=== PATIENT | female | born 1985 | race Two or more races ===

== ENCOUNTER 2024-02-12 03:58 | Emergency (ER) | payer OTHER ==
[~2024-02-12] VITALS: Ht 170.2 cm; Wt 120.4 kg
--- NOTE | 2024-02-12 04:21 | ED.PDOC ---
History of Present Illness HPI Comments 38 year old female brought in by EMS presents to the ED with a chief complaint of LT leg wound onset today around 03:00. Patient had a varicose vein on LT leg that has been bleeding for the past 2 weeks, patient has seen wound care nurse. She woke up today around 03:00, was walking to the restroom when she felt a "wet sensation" and noticed LT leg was bleeding. EMS states patient lost about 500 mL of blood and was experiencing dizziness, nausea, weakness upon EMS arrival. No other symptoms or modifying factors present at this time. Chief Complaint: Lower Extremity Time Seen by MD: 04:13 Primary Care Provider: Alexandre Pérez Notes: Medications, Allergies Allergies: Coded Allergies: NO KNOWN ALLERGIES (Unverified , 05/11/12) Information Source: Patient, Emergency Med Personnel Mode of Arrival: EMS Severity: Moderate Timing: Hours Duration: Since onset Prehospital treatment: None Past Medical History PAST MEDICAL HISTORY: Denies Surgical History: Denies all surgeries [employer] History: No Pertinent [employer] History Family History Family History: Unknown Social History Smoker: Non-Smoker Alcohol: Denies ETOH Use Drugs: Denies Drug Use Lives In: Home Constitutional: reports: weakness; denies: chills, diaphoresis, fatigue, fever, malaise, sweats, others EENTM: denies: blurred vision, double vision, ear bleeding, ear discharge, ear drainage, ear pain, ear ringing, eye pain, eye redness, hearing loss, mouth pain, mouth swelling, nasal discharge, nose bleeding, nose congestion, nose pain, photophobia, tearing, throat pain, throat swelling, voice changes, others Respiratory: denies: cough, hemoptysis, orthopnea, SOB at rest, shortness of breath, SOB with excertion, stridor, wheezing, others Cardiovascular: denies: chest pain, dizzy spells, diaphoresis, Dyspnea on exertion, edema, irregular heart beat, left arm pain, lightheadedness, palpitations, PND, syncope, others Gastrointestinal: reports: nausea; denies: abdomen distended, abdominal pain, blood streaked bowels, constipated, diarrhea, dysphagia, difficulty swallowing, hematemesis, melena, poor appetite, poor fluid intake, rectal bleeding, rectal pain, vomiting, others Genitourinary: denies: abnormal vagina bleeding, burning, dyspareunia, dysuria, flank pain, frequency, hematuria, incontinence, pain, , vagina discharge, urgency, others Neurological: reports: dizziness; denies: fainting, headache, left sided numbness, left sided weakness, numbness, paresthesia, pre-existing deficit, right sided numbness, right sided weakness, seizure, speech problems, tingling, tremors, weakness, others Musculoskeletal: denies: back pain, gout, joint pain, joint swelling, muscle pain, muscle stiffness, neck pain, others Integumetry: reports: wounds, others (abrasion LT leg); denies: bruises, change in color, change in hair/nails, dryness, laceration, lesions, lumps, rash Allergic/Immunocompromised: denies: Difficulty Healing, Frequent Infections, Hives, Itching, others Hematologic/Lymphatic: denies: anemia, blood clots, easy bleeding, easy bruising, swollen glands, others Endocrine: denies: excessive hunger, excessive sweating, excessive thirst, excessive urination, flushing, intolerance to cold, intolerance to heat, unexplained weight gain, unexplained weight loss, others Psychiatric: denies: anxiety, bipolar disorder, depression, hopeless, panic disorder, schizophrenia, sleepless, suicidal, others All Other Systems: Reviewed and Negative Physical Exam General Appearance: No Apparent Distress, Normal HEENT: Normal ENT Inspection, Pharynx Normal, TMs Normal Neck: Full Range of Motion, Non-Tender, Normal, Normal Inspection Respiratory: Chest Non-Tender, Lungs Clear, No Accessory Muscle Use, No Res piratory Distress, Normal Breath Sounds Cardiovascular: No Edema, No JVD, No Murmur, No Gallop, Normal Peripheral Pulses, Regular Rate/Rhythm Breast Exam: Deferred Gastrointestinal: No Organomegaly, Non Tender, No Pulsatile Mass, Normal Bowel Sounds, Soft Genitalia: Deferred Pelvic: Deferred Rectal: Deferred Extremities: No calf tenderness, Normal capillary refill, Normal inspection, Normal range of motion, Non-tender, No pedal edema Musculoskeletal : Apperance: Normal Neurologic: Alert, technology coach II-XII nml as Tested, No Motor Deficits, Normal Affect, Normal Mood, No Sensory Deficits Cerebellar Function: Normal Reflexes: Normal Skin: Dry, Normal Color, Warm Lymphatic: No Adenopathy Was a procedure done? Was a procedure done?: No Differential Dx Considerations may include: Differential diagnosis includes but not limited to: cellulitis, abscess, compartment syndrome, nerve injury, vascular injury and others X-Ray, Labs, Meds, VS Vital Signs Date Time Temp Pulse Resp B/P (MAP) Pulse Ox O2 Delivery O2 Flow Rate FiO2 02/12/24 05:05 76 18 128/66 (86) 99 02/12/24 04:53 76 16 99 Room Air* 0 21 02/12/24 04:30 98.1 74 16 108/44 (65) 99 98.1 02/12/24 04:01 98.1 76 18 128/66 (86) 99 Time of 1ST Reevaluation: 04:43 Reevaluation 1ST: Unchanged Time of 2ND Reevaluation: 05:08 Reevaluation 2ND: Improved Patient Education/Counseling: Diagnosis, Treatment, Prognosis Family Education/Counseling: No Family Present Departure 1 Departure Time of Disposition: 05:08 Impression: Primary Impression: Venous stasis of lower extremity Additional Impression: Venous stasis ulcer limited to breakdown of skin with varicose veins Disposition: 01 HOME / SELF CARE / HOMELESS Condition: Stable Discharged With: Self, Spouse Critical Care Note Critical Care Time?: No Stability Stability form required: No I personally scribed for JAGUAR GOLDSTEIN MD ([email or web address]) on 02/12/24 at 04:21. Electronically submitted by Shabana Fong ([email or web address]). JAGUAR GOLDSTEIN MD Feb 12, 2024 04:21
[2024-02-12 04:30] VITALS: TEMP 98.1
[2024-02-12 04:53] VITALS: PULSE 76; RESP 16; O2SAT 99
[2024-02-12 05:05] VITALS: BP 128/66; PULSE 76; RESP 18; O2SAT 99
--- NOTE | 2024-02-12 05:58 | ECG ---
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
== END 2024-02-12 04:59 | disposition home or self-care (01) ==
LOC: EDUNIT# 03:58 → EDBD 03:58 → ER 03:58
DX: I87.8 Other specified disorders of veins (principal); I83.029 Varicose veins of left lower extremity with ulcer of unspecified site; L97.921 Non-pressure chronic ulcer of unspecified part of left lower leg limited to breakdown of skin
CPT/HCPCS: 93005